=== PATIENT | female | born 1985 | race Caucasian/White ===

== ENCOUNTER 2016-06-06 23:00 | Emergency (ER) | payer OTHER ==
[~2016-06-06] VITALS: Ht 165.1 cm; Wt 58.4 kg
[~2016-06-06 23:00] MED LIST: BUTALB-APAP-CA1 EACH PO; CEFDINIR300 MG PO; CETIRIZINE HCL10 M2 PO; FLAGYL500 MG PO; HYDROCODON-ACE1 EAC7 PO; INDERAL20 MG PO; LYRICA50 MG PO; MELOXICAM7.5 MG PO; NAPROSYN500 MG PO; PHENERGAN25 MG PR; PROMETHAZINE HC25 M1 PO; SEROQUEL300 MG PO; SUMATRIPTAN SUC50 MG PO; VALIUM2 MG PO; XANAX0.25 MG PO
[2016-06-07 01:09] VITALS: BP 129/77
== END 2016-06-07 01:09 | disposition home or self-care (01) ==
LOC: EME 23:00 → EXP 23:00
DX: R51 Headache (principal); G89.29 Other chronic pain; F17.200 Nicotine dependence, unspecified, uncomplicated
CPT/HCPCS: 99281; 99284; J1885

== ENCOUNTER 2017-06-09 20:39 | Emergency (ER) | payer OTHER ==
[~2017-06-09] VITALS: Ht 165.1 cm; Wt 51.1 kg
[2017-06-09 21:18] LABS: HEMATOCRIT 36.8 % (36.0-46.0); HEMOGLOBIN 12.7 G/DL (11.9-15.5); MCH 32.9 PG (29.0-34.0); MCHC 34.5 G/DL (30.0-36.0); MCV 95.3 FL (83-99); PLATELET COUNT 199 K/uL (156-360); RBC DIS.WIDTH-CV 12.5 % (11.8-14.6); RBC DIS.WIDTH-SD 43.1 % (39-53); RED BLOOD COUNT 3.86 M/uL (3.80-5.20); WHITE BLOOD COUNT 8.9 K/uL (4.1-10.2)
[2017-06-09 21:33] LABS: CHLORIDE 106 mEq/L (99-109); POTASSIUM 3.7 mEq/L (3.7-5.4); SODIUM 137 mEq/L (136-147)
[2017-06-09 21:35] LABS: GLUCOSE 91 mg/dL (70-99)
[2017-06-09 21:39] LABS: CREATININE 0.7 mg/dL (0.6-1.3); GFR ESTIMATE (CALCULATED) > 59 mL/min/; UREA NITROGEN (BUN) 11 mg/dL (9-23)
[2017-06-09 21:42] LABS: TROP-I INTERPRETATION NEGATIVE; TROPONIN-I < 0.01 ng/mL (0.0-0.30)
[2017-06-10 00:13] LABS: TROP-I INTERPRETATION NEGATIVE; TROPONIN-I < 0.01 ng/mL (0.0-0.30)
[2017-06-10 01:02] VITALS: BP 96/63
== END 2017-06-10 01:02 | disposition home or self-care (01) ==
LOC: EME 20:39
PROVIDERS: Emergency Medicine
DX: R07.89 Other chest pain (principal); K21.9 Gastro-esophageal reflux disease without esophagitis; F41.9 Anxiety disorder, unspecified; F32.9 Major depressive disorder, single episode, unspecified; F31.9 Bipolar disorder, unspecified; G43.909 Migraine, unspecified, not intractable, without status migrainosus; Z90.710 Acquired absence of both cervix and uterus; F17.200 Nicotine dependence, unspecified, uncomplicated; Z91.040 Latex allergy status
CPT/HCPCS: 71046; 80048; 84484; 85027; 93005; 99281; 99284

== ENCOUNTER 2017-08-03 18:59 | Emergency (ER) | payer OTHER ==
[~2017-08-03] VITALS: Ht 165.1 cm; Wt 47.4 kg
[2017-08-03] MEDS ORDERED: FLEXERIL10 MG PO (21:00)
[2017-08-03] MEDS ORDERED: MOTRIN600 MG PO (21:00)
[2017-08-03 21:09] VITALS: BP 120/80
== END 2017-08-03 21:10 | disposition home or self-care (01) ==
LOC: EME → EDBD 18:59 → EME 21:10
DX: R51 Headache (principal); S16.1XXA Strain of muscle, fascia and tendon at neck level, initial encounter; V43.52XA Car driver injured in collision with other type car in traffic accident, initial encounter; Y92.410 Unspecified street and highway as the place of occurrence of the external cause; G25.81 Restless legs syndrome; F17.200 Nicotine dependence, unspecified, uncomplicated; Z91.040 Latex allergy status
CPT/HCPCS: 70450; 72125; 99281; 99284

== ENCOUNTER 2017-08-17 19:58 | Emergency (ER) | payer OTHER ==
[~2017-08-17] VITALS: Ht 165.1 cm; Wt 48.2 kg
[~2017-08-17 19:58] MED LIST changes: +FLEXERIL10 MG PO; +MOTRIN600 MG PO
[2017-08-17 20:32] LABS: HEMATOCRIT 38.3 % (36.0-46.0); HEMOGLOBIN 13.4 G/DL (11.9-15.5); MCH 33.4 PG (29.0-34.0); MCV 95.5 FL (83-99); PLATELET COUNT 169 K/uL (156-360); RBC DIS.WIDTH-CV 12.2 % (11.8-14.6); RED BLOOD COUNT 4.01 M/uL (3.80-5.20); WHITE BLOOD COUNT 7.2 K/uL (4.1-10.2)
[2017-08-17 20:41] LABS: ALBUMIN 4.6 g/dL (3.2-4.8); CHLORIDE 104 mEq/L (99-109); POTASSIUM 3.4 mEq/L (3.7-5.4); SODIUM 141 mEq/L (136-147)
[2017-08-17 20:42] LABS: AMYLASE 51 IU/L (1-118)
[2017-08-17 20:44] LABS: GLUCOSE 91 mg/dL (70-99); TOTAL PROTEIN 7.1 g/dL (6.4-8.3)
[2017-08-17 20:46] LABS: TOTAL BILIRUBIN 0.5 mg/dL (0.0-1.0)
[2017-08-17 20:47] LABS: ALKALINE PHOSPHATASE 53 IU/L (3-129); CREATININE 0.8 mg/dL (0.6-1.3); GFR ESTIMATE (CALCULATED) > 59 mL/min/
[2017-08-17 20:48] LABS: UREA NITROGEN (BUN) 12 mg/dL (9-23)
[2017-08-17 20:49] LABS: AST (GOT) 12 IU/L (2-34)
[2017-08-17 20:50] LABS: ALT (GPT) 9 IU/L (3-49)
[2017-08-17 20:51] LABS: LIPASE 11 U/L (1.0-51.0)
[2017-08-17 21:17] LABS: APPEARANCE CLOUDY ((CLEAR)); BILIRUBIN NEGATIVE; BLOOD MODERATE; COLOR YELLOW ((YELLOW)); GLUCOSE (STRIP) NEGATIVE; KETONES 20; LEUKOCYTES NEGATIVE; NITRITE NEGATIVE; PROTEIN (STRIP) 30; SPECIFIC GRAVITY 1.017 (1.000-1.030); UROBILINOGEN 0.2 MG/DL (0.2-1.0)
[2017-08-17 21:50] LABS: BACTERIA 1+ /HPF; EPITHELIAL CELLS 1+ /HPF; MUCUS 1+ /LPF; RED BLOOD CELLS 0-5 /HPF (0-5); UCUL ADDED? NO; WHITE BLOOD CELLS 0-5 /HPF (0-5)
[2017-08-17] MEDS ORDERED: ZOFRAN4 MG PO (21:55)
[2017-08-17 22:09] VITALS: BP 123/76
== END 2017-08-17 22:10 | disposition home or self-care (01) ==
LOC: EXP 19:58 → EME 19:58 → EXP 22:10
PROVIDERS: Nurse Practitioner Family
DX: R11.2 Nausea with vomiting, unspecified (principal); K21.9 Gastro-esophageal reflux disease without esophagitis; G25.81 Restless legs syndrome; I34.1 Nonrheumatic mitral (valve) prolapse; G43.909 Migraine, unspecified, not intractable, without status migrainosus; F17.200 Nicotine dependence, unspecified, uncomplicated; F41.9 Anxiety disorder, unspecified; F32.9 Major depressive disorder, single episode, unspecified; F31.9 Bipolar disorder, unspecified; Z91.040 Latex allergy status
CPT/HCPCS: 71046; 74177; 80053; 81003; 82150; 83690; 85027; 99281; 99284; J2405; J7030